=== PATIENT | male | born 1995 | race Caucasian/White ===

== ENCOUNTER 2016-12-07 18:50 | Emergency (ER) | payer MEDICAID ==
[~2016-12-07] VITALS: Ht 190.5 cm; Wt 113.6 kg
[2016-12-07 19:07] VITALS: BP 140/85
== END 2016-12-07 20:32 | disposition home or self-care (01) ==
LOC: ED 20:20
DX: S90.31XA Contusion of right foot, initial encounter (principal); W22.8XXA Striking against or struck by other objects, initial encounter; Y93.89 Activity, other specified; Y99.8 Other external cause status; Y92.009 Unspecified place in unspecified non-institutional (private) residence as the place of occurrence of the external cause
CPT/HCPCS: 99284

== ENCOUNTER 2017-01-16 23:11 | Emergency (ER) | payer MEDICAID ==
[~2017-01-16] VITALS: Ht 190.5 cm; Wt 100.0 kg
[2017-01-16 23:35] VITALS: BP 148/70
[2017-01-16] MEDS ORDERED: PROMETHAZINE 25 MG/ML, 1ML ONE (23:58)
[2017-01-17] MEDS ORDERED: PROMETHAZINE 25 MG/ML, 1ML IM ONE
[2017-01-17] MEDS ORDERED: SODIUM CHLORIDE 0.9% 1,000ML IVBOLUS ONE
[2017-01-17] MEDS ORDERED: SODIUM CHLORIDE FLUSH 10ML SYR IVF ONE
[2017-01-17 00:01] LABS: BLOOD UREA NITROGEN 10 mg/dL (7-18); HEMATOCRIT 48.9 % (39.2-51.8); HEMOGLOBIN 16.8 g/dL (13.7-18.0); WHITE BLOOD COUNT 8.4 x10^3/uL (3.4-10)
== END 2017-01-17 01:07 | disposition home or self-care (01) ==
LOC: ED 23:23
DX: R55 Syncope and collapse (principal); F10.120 Alcohol abuse with intoxication, uncomplicated; F17.200 Nicotine dependence, unspecified, uncomplicated
CPT/HCPCS: 36415; 70450; 80048; 80307; 82040; 85025; 85379; 93005; 96360; 96372; 99285; J2550; J7030; G0479

== ENCOUNTER 2017-08-11 15:23 | Emergency (ER) | payer MEDICAID ==
[~2017-08-11] VITALS: Ht 190.5 cm; Wt 118.9 kg
[2017-08-11 15:59] LABS: BASOPHILS # (AUTO) 0.05 x10^3/uL (0-0.1); BASOPHILS % (AUTO) 1 % (0-1); EOSINOPHILS # (AUTO) 0.13 x10^3/uL (0-0.4); EOSINOPHILS % (AUTO) 2 % (1-7); LYMPHOCYTES # (AUTO) 0.94 x10^3/uL (1-3.4); LYMPHOCYTES % (AUTO) 14 % (22-44); MD NO; MEAN CORPUSCULAR HEMOGLOBIN 29.8 pg (27.5-34.5); MEAN CORPUSCULAR HGB CONC 33.9 g/dL (33.2-36.2); MEAN CORPUSCULAR VOLUME 87.9 fL (81-97); MEAN PLATELET VOLUME 8.5 fL (7.4-10.4); MONOCYTES # (AUTO) 0.46 x10^3/uL (0.2-0.8); MONOCYTES % (AUTO) 7 % (2-9); NEUTROPHILS # (AUTO) 5.02 x10^3/uL (1.8-6.8); NEUTROPHILS % (AUTO) 76 % (42-75); PLATELET COUNT 218 x10^3/uL (130-400); RED BLOOD COUNT 5.45 x10^6/uL (4.38-5.82); RED CELL DISTRIBUTION WIDTH 12.6 % (9.4-14.8)
[2017-08-11 16:15] LABS: ALANINE AMINOTRANSFERASE 55 U/L (12-78); ANION GAP 5 mmol/L (5-15); CALCIUM 9.4 mg/dL (8.5-10.1); CHLORIDE 108 mmol/L (98-107); CREATININE 1.09 mg/dL (0.7-1.3)
[2017-08-11 16:17] LABS: ALKALINE PHOSPHATASE 88 U/L (45-117); BILIRUBIN,TOTAL 0.7 mg/dL (0.2-1.0); TOTAL PROTEIN 8.1 g/dL (6.4-8.2)
[2017-08-11 16:52] LABS: MICROSCOPIC NOT IND
[2017-08-11 16:57] LABS: CULTURE INDICATED? NO
[2017-08-11] MEDS ORDERED: SODIUM CHLORIDE 0.9% 1,000ML IVBOLUS ONE (17:00)
[2017-08-11] MEDS ORDERED: KETOROLAC 30 MG/1 ML IVPush ONE (17:00)
[2017-08-11] MEDS ORDERED: DIPHENHYDRAMINE 50 MG/ML, 1ML IVPush ONE (17:00)
[2017-08-11] MEDS ORDERED: SODIUM CHLORIDE FLUSH 10ML SYR IVF ONE (17:00)
[2017-08-11] MEDS ORDERED: METOCLOPRAMIDE 5 MG/ML, 2ML IVPush ONE (17:00)
[2017-08-11] MEDS ORDERED: DIPHENHYDRAMINE 50 MG/ML, 1ML ONE (17:22)
[2017-08-11] MEDS ORDERED: KETOROLAC 30 MG/1 ML ONE (17:22)
[2017-08-11] MEDS ORDERED: METOCLOPRAMIDE 5 MG/ML, 2ML ONE (17:22)
[2017-08-11 18:36] VITALS: BP 110/62
== END 2017-08-11 18:41 | disposition home or self-care (01) ==
LOC: ED 18:30
DX: G43.109 Migraine with aura, not intractable, without status migrainosus (principal); F17.210 Nicotine dependence, cigarettes, uncomplicated
CPT/HCPCS: 36415; 74021; 80053; 81003; 83690; 85025; 96374; 96375; 99285; J1200; J1885; J2765; J7030

== ENCOUNTER 2018-05-24 07:05 | Emergency (ER) | payer SELFPAY ==
[~2018-05-24] VITALS: Ht 188 cm; Wt 114.4 kg
[2018-05-24 07:13] VITALS: BP 131/78
--- NOTE | 2018-05-24 07:48 | NUR ---
PT TO X-RAY
== END 2018-05-24 09:16 | disposition home or self-care (01) ==
LOC: ED 09:01
DX: B34.9 Viral infection, unspecified (principal); F17.210 Nicotine dependence, cigarettes, uncomplicated
CPT/HCPCS: 71046; 99283

== ENCOUNTER 2018-08-21 15:33 | Emergency (ER) | payer SELFPAY ==
[~2018-08-21] VITALS: Ht 188 cm; Wt 110.0 kg
[2018-08-21 15:41] VITALS: BP 121/76
[2018-08-21] MEDS ORDERED: FLUORESCEIN OPHTHALMIC 1 MG STRIP EACHEYE ONE (16:30)
[2018-08-21] MEDS ORDERED: PROPARACAINE OPHTH 0.5%, 15ML EACHEYE ONE (16:30)
[2018-08-21] MEDS ORDERED: FLUORESCEIN OPHTHALMIC 1 MG STRIP ONE (16:42)
[2018-08-21] MEDS ORDERED: PROPARACAINE OPHTH 0.5%, 15ML ONE (16:42)
--- NOTE | 2018-08-21 17:15 | NUR ---
Patient given discharge instructions and they have confirmed that they understand the instructions. Patient ambulatory with steady gait.
== END 2018-08-21 17:17 | disposition home or self-care (01) ==
LOC: ED 16:47
DX: S05.11XA Contusion of eyeball and orbital tissues, right eye, initial encounter (principal); S05.01XA Injury of conjunctiva and corneal abrasion without foreign body, right eye, initial encounter; H11.31 Conjunctival hemorrhage, right eye; F17.210 Nicotine dependence, cigarettes, uncomplicated; X58.XXXA Exposure to other specified factors, initial encounter; Y93.89 Activity, other specified; Y92.89 Other specified places as the place of occurrence of the external cause; Y99.8 Other external cause status
CPT/HCPCS: 99283

== ENCOUNTER 2018-10-29 09:09 | Emergency (ER) | payer SELFPAY ==
[~2018-10-29] VITALS: Ht 190.5 cm; Wt 112.0 kg
[2018-10-29 09:12] VITALS: BP 107/71
== END 2018-10-29 10:58 | disposition home or self-care (01) ==
LOC: ED 09:30
DX: S93.401A Sprain of unspecified ligament of right ankle, initial encounter (principal); S93.601A Unspecified sprain of right foot, initial encounter; G43.909 Migraine, unspecified, not intractable, without status migrainosus; X50.1XXA Overexertion from prolonged static or awkward postures, initial encounter; Y93.89 Activity, other specified; Y92.410 Unspecified street and highway as the place of occurrence of the external cause; Y99.8 Other external cause status
CPT/HCPCS: 99283